=== PATIENT | male | born 1945 | race Caucasian/White ===

== ENCOUNTER 2016-08-26 17:53 | Emergency (ER) | payer MEDICARE ==
--- NOTE | 2016-08-26 18:12 | Emergency Department Record ---
History of Present Illness - General Chief Complaint: Laceration(s) Stated Complaint: LAC ON L INDEX FINGER Time Seen by Provider: 08/26/16 18:09 Source: Patient Mode of Arrival: Ambulatory Limitations: No limitations - History of Present Illness Initial Commments: The patient cut his L index finger tip on a knife about an hour ago. His Td is possibly not UTD. He denies any other issues. Onset/Timin -: Minutes(s) Place: Home Context: Accidental Associated Symptoms: None Treatments Prior to Arrival: Bandage - [place] Coma Scale Eye Response: (4) Open spontaneously Motor Response: (6) Obeys commands Verbal Response: (5) Oriented Deidra Total: 15 - Related Data Hx Tetanus Toxoid Vaccination: Yes Year of Tetanus Vaccination: Within past 10yrs Patient Tetanus UTD (within 5 yrs): No Home Medications Medication Instructions Recorded Confirmed Last Taken Aspirin [Adult Low Dose Aspirin EC] 81 mg PO DAILY 06/29/15 08/26/16 08/26/16 Calcium Carb/D3/Magnesium/Zinc 1 tab PO DAILY 06/29/15 08/26/16 08/26/16 [Florent[place] Mag Zinc + D Tablet] Lecithin 1 tab PO DAILY 06/29/15 08/26/16 08/26/16 Losartan/Hydrochlorothiazide 1 tab PO DAILY 06/29/15 08/26/16 08/26/16 [Losartan-Hctz 100-12.5 mg Tab] Multivitamin [Daily Multiple 1 tab PO DAILY 06/29/15 08/26/16 08/26/16 Vitamin] [place]-3/Dha/Epa/Fish Oil [Fish Oil 500 mg PO DAILY 06/29/15 08/26/16 08/26/16 Dr 500 mg Softgel] Ubidecarenone [Co Q-10] 1 tab PO DAILY 06/29/15 08/26/16 08/26/16 Vitamin E 400 unit PO DAILY 06/29/15 08/26/16 08/26/16 Cephalexin [Keflex] 500 mg PO QID 08/26/16 08/26/16 08/26/16 Sulfamethoxazole/Trimethoprim 1 tab PO BID 08/26/16 08/26/16 08/26/16 [Sulfamethoxazole-Tmp Ds Tablet] Allergies Allergy/AdvReac Type Severity Reaction Status Date / Time No Known Drug Intolerances Allergy Unknown PT UNSURE Verified 08/26/16 17:56 OF REACTION Travel Screening - Travel/Exposure Within Last 30 Days Have you traveled within the last 30 days?: No - Travel/Exposure Within Last Year Have you traveled outside the [place] in the last year?: No - Additonal Travel Details Have you been exposed to anyone with a communicable illness?: No - Travel Symptoms Symptom Screening: None Past Medical History - SOCIAL HISTORY Smoking Status: Never smoker Alcohol Use: Rare Drug Use: None - RESPIRATORY Hx Respiratory Disorders: No - CARDIOVASCULAR Hx Cardio Disorders: Yes Hx Hypertension: Yes (well controlled) - NEURO Hx Neuro Disorders: No - GI Hx GI Disorders: Yes Hx of Polyps: Yes - Hx Genitourinary Disorders: No - ENDOCRINE Hx Endocrine Disorders: No Hx Diabetes: No Hx Thyroid Disease: No - MUSCULOSKELETAL Hx Musculoskeletal Disorders: Yes Hx Arthritis: Yes - PSYCH Hx Psych Problems: No - HEMATOLOGY/ONCOLOGY Hx Hematology/Oncology Disorders: No Family Medical History Any Significant Family History?: Yes Hx Stroke: Mother Physical Exam - General General Appearance: Alert, Oriented x3, Cooperative, No acute distress - Head Head exam: Atraumatic, Normocephalic, Normal inspection - Eye Eye exam: Normal appearance, PERRL - Extremities Extremities exam: Tenderness. negative: Normal inspection (There is a 1.5 cm lac to the finger tip of the L index finger over the finger pad. ) Course Vital Signs 08/26/16 18:04 Temperature 98.3 F Pulse Rate 81 Respiratory 18 Rate Blood Pressure 124/88 Pulse Ox 99 - Reevaluation(s) Reevaluation #1: Procedure note: The L 2nd finger was anesth. with 1.5 CC's of Lido 1%. The wound was lavaged and prepped with betadine. The wound was closed with 5 4.0 nylon sutures. There were no complications. 08/26/16 18:39 Disposition Disposition: Discharge Clinical Impression: Finger laceration Qualifiers: Encounter type: initial encounter Qualified Code(s): S61.219A - Laceration without foreign body of unspecified finger without damage to nail, initial encounter Disposition: Home, Self-Care Condition: (1) Good Instructions: Laceration (ED) Additional Instructions: Keep dry for 2 days then wash daily but no soaking. Watch for signs of infection. Have the sutures removed in 10 days. Forms: Patient Portal Access Time of Disposition: 18:40
[2016-08-26] MEDS ORDERED: Diph,Pert(Acell),Tet Vac 0.5 ML SYR IM ONE (18:17)
== END 2016-08-26 18:59 | disposition home or self-care (01) ==
LOC: ER 17:53
DX: S61.211A Laceration without foreign body of left index finger without damage to nail, initial encounter (principal); W26.0XXA Contact with knife, initial encounter; Y92.009 Unspecified place in unspecified non-institutional (private) residence as the place of occurrence of the external cause
CPT/HCPCS: 12001; 90715; 96372; 99283

== ENCOUNTER 2016-09-06 08:05 | Emergency (ER) | payer MEDICARE ==
--- NOTE | 2016-09-06 08:39 | Emergency Department Record ---
History of Present Illness - General Chief Complaint: Suture removal Stated Complaint: SUTURE REMOVEL Time Seen by Provider: 09/06/16 08:31 - History of Present Illness Initial Comments: suture removal finger index Onset/Timin -: Week(s) Initial Visit For: Laceration Returns Today for: Staple/stitch removal Symptoms Since Prior Visit: No new symptoms Associated Symptoms: None - Related Data Home Medications Medication Instructions Recorded Confirmed Last Taken Aspirin [Adult Low Dose Aspirin EC] 81 mg PO DAILY 06/29/15 09/06/16 08/26/16 Calcium Carb/D3/Magnesium/Zinc 1 tab PO DAILY 06/29/15 09/06/16 08/26/16 [Florentin Mag Zinc + D Tablet] Lecithin 1 tab PO DAILY 06/29/15 09/06/16 08/26/16 Losartan/Hydrochlorothiazide 1 tab PO DAILY 06/29/15 09/06/16 08/26/16 [Losartan-Hctz 100-12.5 mg Tab] Multivitamin [Daily Multiple 1 tab PO DAILY 06/29/15 09/06/16 08/26/16 Vitamin] [place]-3/Dha/Epa/Fish Oil [Fish Oil 500 mg PO DAILY 06/29/15 09/06/16 08/26/16 Dr 500 mg Softgel] Ubidecarenone [Co Q-10] 1 tab PO DAILY 06/29/15 09/06/16 08/26/16 Vitamin E 400 unit PO DAILY 06/29/15 09/06/16 08/26/16 Cephalexin [Keflex] 500 mg PO QID 08/26/16 09/06/16 08/26/16 Sulfamethoxazole/Trimethoprim 1 tab PO BID 08/26/16 09/06/16 08/26/16 [Sulfamethoxazole-Tmp Ds Tablet] Allergies Allergy/AdvReac Type Severity Reaction Status Date / Time No Known Drug Intolerances Allergy Unknown PT UNSURE Verified 09/06/16 08:21 OF REACTION Travel Screening - Travel/Exposure Within Last 30 Days Have you traveled within the last 30 days?: No Review of Systems Reviewed: No additional complaints except as noted below Constitutional: Reports: As per HPI. Denies: Chills, Fever, Malaise, Night sweats, Weakness, Weight change Eyes: Reports: As per HPI. Denies: Eye discharge, Eye pain, Photophobia, Vision change ENT: Reports: As per HPI. Denies: Congestion, Dental pain, Ear pain, Epistaxis , Hearing loss, Throat pain Respiratory: Reports: As per HPI. Denies: Cough, Dyspnea, Hemoptysis, Stridor, Wheezes Cardiovascular: Reports: As per HPI. Denies: Arrhythmia, Chest pain, Dyspnea on exertion, Edema, Murmurs, Orthopnea, Palpitations, Paroxysmal nocturnal dyspnea, Rheumatic Fever, Syncope Endocrine: Reports: As per HPI. Denies: Fatigue, Heat or cold intolerance, Polydipsia, Polyuria Gastrointestinal: Reports: As per HPI. Denies: Abdominal pain, Constipation, Diarrhea, Hematemesis, Hematochezia, Melena, Nausea, Vomiting Genitourinary: Reports: As per HPI. Denies: Dysuria, Frequency, Hematuria, Incontinence, Retention, Testicular pain, Testicular mass, Urgency Musculoskeletal: Reports: As per HPI. Denies: Arthralgia, Back pain, Gout, Joint swelling, Myalgia, Neck pain Skin: Reports: As per HPI. Denies: Bruising, Change in color, Change in hair/ nails, Lesions, Pruritus, Rash Neurological: Reports: As per HPI. Denies: Abnormal gait, Confusion, Headache, Numbness, Paresthesias, Seizure, Tingling, Tremors, Vertigo, Weakness Psychiatric: Reports: As per HPI. Denies: Anxiety, Auditory hallucinations, Depression, Homicidal thoughts, Suicidal thoughts, Visual hallucinations Hematological/Lymphatic: Reports: As per HPI. Denies: Anemia, Blood Clots, Easy bleeding, Easy bruising, Swollen glands Past Medical History - SOCIAL HISTORY Smoking Status: Never smoker Alcohol Use: None Drug Use: None - RESPIRATORY Hx Respiratory Disorders: No - CARDIOVASCULAR Hx Cardio Disorders: Yes Hx Hypertension: Yes (well controlled) - NEURO Hx Neuro Disorders: No - GI Hx GI Disorders: Yes Hx of Polyps: Yes - Hx Genitourinary Disorders: No - ENDOCRINE Hx Endocrine Disorders: No Hx Diabetes: No Hx Thyroid Disease: No - MUSCULOSKELETAL Hx Musculoskeletal Disorders: Yes Hx Arthritis: Yes - PSYCH Hx Psych Problems: No - HEMATOLOGY/ONCOLOGY Hx Hematology/Oncology Disorders: No Family Medical History Any Significant Family History?: Yes Hx Stroke: Mother Physical Exam - General General Appearance: Alert, Oriented x3, Cooperative, No acute distress - Head Head exam: Normal inspection - Eye Eye exam: Normal appearance, PERRL Pupils: Normal accommodation - ENT ENT exam: Normal exam, Mucous membranes moist, Normal external ear exam, Normal orophraynx, TM's normal bilaterally Ear exam: Normal external inspection. negative: External canal tenderness Nasal Exam: Normal inspection. negative: Discharge, Sinus tenderness Mouth exam: Normal external inspection, Tongue normal Teeth exam: Normal inspection. negative: Dental caries Throat exam: Normal inspection. negative: Tonsillar erythema, Tonsillar exudate - Neck Neck exam: Normal inspection, Full ROM. negative: Tenderness - Respiratory Respiratory exam: Normal lung sounds bilaterally. negative: Respiratory distress - Cardiovascular Cardiovascular Exam: Regular rate, Normal rhythm, Normal heart sounds - GI/Abdominal GI/Abdominal exam: Soft, Normal bowel sounds. negative: Tenderness - Rectal Rectal exam: Deferred - exam: Deferred - Extremities Extremities exam: Normal inspection, Full ROM, Normal capillary refill. negative: Tenderness - Back Back exam: Reports: Normal inspection, Full ROM. Denies: Muscle spasm, Rash noted, Tenderness - Neurological Neurological exam: Alert, Normal gait, Oriented X3, Reflexes normal - Psychiatric Psychiatric exam: Normal affect, Normal mood - Skin Skin exam: Dry, Intact, Normal color, Warm, Other (no signs of infection) Course Vital Signs 09/06/16 08:16 Temperature 98.1 F Pulse Rate 75 Respiratory 20 Rate Blood Pressure 125/80 Pulse Ox 96 remove sutures Disposition Clinical Impression: Encounter for Removal of Sutures Disposition: Home, Self-Care Condition: (1) Good Instructions: Suture Removal (ED) Forms: Patient Portal Access Time of Disposition: 08:39
== END 2016-09-06 08:51 | disposition home or self-care (01) ==
LOC: ER 08:05
DX: Z48.02 Encounter for removal of sutures (principal)